=== PATIENT | female | born 1960 | race Caucasian/White ===

== ENCOUNTER 2017-02-03 05:40 | Emergency (ER) | payer BC ==
[~2017-02-03] VITALS: Ht 157.5 cm; Wt 63.6 kg
[2017-02-03] MEDS ORDERED: SODIUM CHLORIDE 0.9% 1,000 ML IV ONE (06:18)
[2017-02-03] MEDS ORDERED: LORazepam 2 MG/ML, 1ML IVPush ONE (06:30)
[2017-02-03] MEDS ORDERED: SODIUM CHLORIDE FLUSH 10ML SYR IVF ONE (06:30)
[2017-02-03] MEDS ORDERED: KETOROLAC 30 MG/1 ML IVPush ONE (06:30)
[2017-02-03] MEDS ORDERED: SODIUM CHLORIDE 0.9% 1,000ML IVBOLUS ONE (06:30)
[2017-02-03] MEDS ORDERED: KETOROLAC 30 MG/1 ML ONE (06:33)
[2017-02-03] MEDS ORDERED: LORazepam 2 MG/ML, 1ML ONE (06:34)
[2017-02-03 07:14] LABS: ASPARTATE AMINO TRANSFERASE 21 U/L (15-37); BLOOD UREA NITROGEN 14 mg/dL (7-18)
[2017-02-03] MEDS ORDERED: POTASSIUM CHLORIDE 20 MEQ TAB.ER.PRT PO ONE (08:00)
[2017-02-03 10:05] VITALS: BP 102/56
[2017-02-03] MEDS ORDERED: POTASSIUM CHLORIDE 20 MEQ TAB.ER.PRT ONE (10:48)
== END 2017-02-03 11:07 | disposition home or self-care (01) ==
LOC: ED 11:01
DX: M79.1 Myalgia (principal); J20.9 Acute bronchitis, unspecified; B96.89 Other specified bacterial agents as the cause of diseases classified elsewhere; L03.113 Cellulitis of right upper limb; E87.6 Hypokalemia; Z85.9 Personal history of malignant neoplasm, unspecified
CPT/HCPCS: 36415; 71020; 80053; 82550; 83605; 83690; 84484; 85025; 93005; 96361; 96374; 96375; 99285; J1885; J2060; J7030

== ENCOUNTER 2017-03-09 19:00 | Emergency (ER) | payer BC ==
[~2017-03-09] VITALS: Ht 157.5 cm; Wt 68.5 kg
[2017-03-09] MEDS ORDERED: SODIUM CHLORIDE 0.9% 1,000ML IVBOLUS ONE (19:30)
[2017-03-09 19:34] LABS: BLOOD UREA NITROGEN 12 mg/dL (7-18)
[2017-03-09 20:00] LABS: ASPARTATE AMINO TRANSFERASE 26 U/L (15-37)
[2017-03-09 20:51] VITALS: BP 174/90
== END 2017-03-09 20:53 | disposition home or self-care (01) ==
LOC: ED 20:41
DX: M62.831 Muscle spasm of calf (principal); F17.210 Nicotine dependence, cigarettes, uncomplicated
CPT/HCPCS: 36415; 80053; 83735; 85025; 99284

== ENCOUNTER 2017-03-19 14:03 | Inpatient (IN) | payer BC ==
[~2017-03-19] VITALS: Ht 157.5 cm; Wt 69.0 kg
[2017-03-19] MEDS ORDERED: LORazepam 2 MG/ML, 1ML ONE ×2 (15:27→16:28)
[2017-03-19] MEDS ORDERED: SODIUM CHLORIDE 0.9% 1,000ML IVBOLUS ONE (15:30)
[2017-03-19] MEDS ORDERED: LORazepam 2 MG/ML, 1ML IVPush ONE ×2 (15:30→16:30)
[2017-03-19] MEDS ORDERED: SODIUM CHLORIDE FLUSH 10ML SYR IVF ONE (15:30)
[2017-03-19 15:53] LABS: ASPARTATE AMINO TRANSFERASE 32 U/L (15-37); BLOOD UREA NITROGEN 17 mg/dL (7-18)
[2017-03-19] MEDS ORDERED: FLUT9.9S NAS (15:58)
[2017-03-19] MEDS ORDERED: MAGNESIUM SULFATE 1 GM, THIAMINE 100 MG, FOLIC ACID 1 MG, MVI ADULT 10 ML in SODIUM CHL... IV ONE (16:30)
[2017-03-19] MEDS ORDERED: GABAPENTIN 100 MG CAPSULE PO ONE (16:30)
[2017-03-19] MEDS ORDERED: POTASSIUM CHLORIDE 20 MEQ, MVI ADULT 10 ML, FOLIC ACID 1 MG, MAGNESIUM SULFATE 2 GM in ... IV SCH (16:57)
[2017-03-19] MEDS ORDERED: ACETAMINOPHEN 325 MG TABLET PO PRN (17:00)
[2017-03-19] MEDS ORDERED: ONDANSETRON 2MG/ML, 2ML IV PRN (17:00)
[2017-03-19] MEDS ORDERED: ALUMINUM/MAG/SIMETHICONE 30 ML UDC PO PRN (17:00)
[2017-03-19] MEDS ORDERED: LABETALOL 5MG/ML, 20ML IV PRN (17:00)
[2017-03-19] MEDS ORDERED: LORazepam 2 MG/ML, 1ML IV PRN ×5 (17:00)
[2017-03-19] MEDS ORDERED: DIPHENHYDRAMINE 50 MG CAPSULE PO PRN (17:00)
[2017-03-19] MEDS ORDERED: LORazepam 0.5MG TABLET PO PRN (17:00)
[2017-03-19] MEDS ORDERED: LORazepam 1MG TABLET PO PRN ×2 (17:00)
[2017-03-19] MEDS ORDERED: OMNIPAQUE 350 MG/ML, 100ML BOTTLE ONE (18:00)
[2017-03-19 18:05] VITALS: BP 162/93
[2017-03-19] MEDS ORDERED: [UNRECOGNIZED DRUG - OTHER] IV SCH (20:30)
[2017-03-19] MEDS ORDERED: THIAMINE IV SCH (20:30)
[2017-03-19] MEDS ORDERED: MVI ADULT IV SCH (20:30)
[2017-03-19] MEDS ORDERED: FOLIC ACID IV SCH (20:30)
[2017-03-19] MEDS ORDERED: MAGNESIUM SULFATE IV SCH (20:30)
[2017-03-19 20:55] VITALS: BP 173/102
[2017-03-19] MEDS ORDERED: MAGNESIUM SULFATE 1 GM, THIAMINE 100 MG, FOLIC ACID 1 MG, MVI ADULT 10 ML in SODIUM CHL... IV SCH (21:00)
[2017-03-19] MEDS ORDERED: NICOTINE 14MG/24 HR PATCH.TD24 TD SCH (22:30)
[2017-03-19] MEDS: HEPARIN 5,000 UNITS/ML, 1ML SQ SCH (22:40)
[2017-03-20 01:00] VITALS: BP 151/90
[2017-03-20] MEDS: HEPARIN 5,000 UNITS/ML, 1ML SQ SCH (05:46)
[2017-03-20 07:57] LABS: BLOOD UREA NITROGEN 17 mg/dL (7-18)
[2017-03-20 08:00] LABS: ASPARTATE AMINO TRANSFERASE 26 U/L (15-37)
[2017-03-20 08:03] VITALS: BP 156/95
[2017-03-20] MEDS ORDERED: NICO1PAT4 TD (08:10)
[2017-03-20] MEDS ORDERED: CYAN1TAB2 PO (08:10)
[2017-03-20] MEDS ORDERED: MULT-484 PO (08:10)
[2017-03-20] MEDS ORDERED: MULTIVITAMINS/MINERALS TABLET PO SCH (09:00)
[2017-03-20 14:19] VITALS: BP 151/66
== END 2017-03-20 13:30 | disposition home or self-care (01) | DRG 897 ==
LOC: ED 16:19 → EDIP 16:20 → ED 17:17 → 3NE 17:57
PROVIDERS: ADMIT Internal Medicine; ATTEND Internal Medicine
DX: F10.239 Alcohol dependence with withdrawal, unspecified (principal); F17.210 Nicotine dependence, cigarettes, uncomplicated; E87.6 Hypokalemia; G89.29 Other chronic pain; F41.9 Anxiety disorder, unspecified; Z98.51 Tubal ligation status
CPT/HCPCS: 36415; 74177; 80053; 81001; 83690; 83735; 84100; 85025; 87086; 93005; 96361; 96374; 96376; J1644; J3411; J3475; Q9967; J2060; J7030

== ENCOUNTER 2017-04-29 16:32 | Emergency (ER) | payer BC ==
[~2017-04-29] VITALS: Ht 157.5 cm; Wt 65.0 kg
[~2017-04-29 16:32] MED LIST: CYAN1TAB2 PO; FLUT9.9S NAS; MULT-484 PO; NICO1PAT13 TD
[2017-04-29 19:22] VITALS: BP 114/91
== END 2017-04-29 19:25 | disposition home or self-care (01) ==
LOC: ED 16:48
DX: F10.229 Alcohol dependence with intoxication, unspecified (principal)
CPT/HCPCS: 99283

== ENCOUNTER 2017-07-05 17:21 | Emergency (ER) | payer BC ==
[~2017-07-05] VITALS: Ht 154.9 cm; Wt 69.3 kg
[~2017-07-05 17:21] MED LIST changes: +NICO-486 TD; -NICO1PAT13 TD
[2017-07-05] MEDS ORDERED: NAPR500T PO (17:41)
[2017-07-05 18:25] LABS: HEMATOCRIT 45.5 % (34.6-47.8); HEMOGLOBIN 15.5 g/dL (11.7-16.4); WHITE BLOOD COUNT 6.5 x10^3/uL (3.4-10)
[2017-07-05 18:34] LABS: BLOOD UREA NITROGEN 13 mg/dL (7-18)
[2017-07-05 18:37] LABS: ASPARTATE AMINO TRANSFERASE 118 U/L (15-37)
[2017-07-05] MEDS ORDERED: POTASSIUM CHLORIDE 20 MEQ TAB.ER.PRT PO ONE (19:00)
[2017-07-05 19:08] VITALS: BP 111/78
[2017-07-05] MEDS ORDERED: POTASSIUM CHLORIDE 20 MEQ TAB.ER.PRT ONE (19:23)
== END 2017-07-05 19:42 | disposition home or self-care (01) ==
LOC: ED 19:34
DX: S70.01XA Contusion of right hip, initial encounter (principal); E87.6 Hypokalemia; F10.20 Alcohol dependence, uncomplicated; X58.XXXA Exposure to other specified factors, initial encounter; Y93.89 Activity, other specified; Y92.89 Other specified places as the place of occurrence of the external cause; Y99.8 Other external cause status
CPT/HCPCS: 36415; 80053; 80307; 85025; 85610; 85730; 99285; G0479

== ENCOUNTER 2018-01-11 17:11 | Emergency (ER) | payer BC ==
[~2018-01-11] VITALS: Ht 154.9 cm; Wt 68.0 kg
[~2018-01-11 17:11] MED LIST changes: +NAPR-856 PO
[2018-01-11 17:57] VITALS: BP 157/85
[2018-01-11] MEDS ORDERED: FOLIC ACID (17:57)
[2018-01-11 18:10] LABS: BASOPHILS # (AUTO) 0.09 x10^3/uL (0-0.1); BASOPHILS % (AUTO) 1 % (0-1); EOSINOPHILS # (AUTO) 0.31 x10^3/uL (0-0.4); EOSINOPHILS % (AUTO) 3 % (1-7); LYMPHOCYTES % (AUTO) 30 % (22-44); MD NO; MEAN CORPUSCULAR HEMOGLOBIN 35.9 pg (27.0-34.8); MEAN CORPUSCULAR HGB CONC 34.1 g/dL (32.4-35.8); MEAN CORPUSCULAR VOLUME 105.5 fL (80-100); MEAN PLATELET VOLUME 8.7 fL (7.4-10.4); MONOCYTES # (AUTO) 0.53 x10^3/uL (0.2-0.8); MONOCYTES % (AUTO) 6 % (2-9); NEUTROPHILS # (AUTO) 5.28 x10^3/uL (1.8-6.8); NEUTROPHILS % (AUTO) 59 % (42-75); PLATELET COUNT 275 x10^3/uL (130-400); RED BLOOD COUNT 4.15 x10^6/uL (3.82-5.3); RED CELL DISTRIBUTION WIDTH 13.9 % (9.6-15.2)
[2018-01-11 18:22] LABS: ALANINE AMINOTRANSFERASE 27 U/L (12-78); ALBUMIN 3.8 g/dL (3.4-5.0); ANION GAP 9 mmol/L (5-15); CALCIUM 8.8 mg/dL (8.5-10.1); CHLORIDE 116 mmol/L (98-107); CREATININE 0.72 mg/dL (0.55-1.02)
[2018-01-11 18:26] LABS: ALKALINE PHOSPHATASE 64 U/L (45-117); BILIRUBIN,TOTAL 0.3 mg/dL (0.2-1.0)
== END 2018-01-11 18:37 | disposition home or self-care (01) ==
LOC: ED 18:10
DX: R60.0 Localized edema (principal); F10.220 Alcohol dependence with intoxication, uncomplicated; E11.9 Type 2 diabetes mellitus without complications; Z79.84 Long term (current) use of oral hypoglycemic drugs; Z90.49 Acquired absence of other specified parts of digestive tract; Z79.899 Other long term (current) drug therapy
CPT/HCPCS: 36415; 71046; 80053; 80307; 83880; 85025; 93005; 93970; 99285

== ENCOUNTER 2018-03-11 15:11 | Emergency (ER) | payer BC ==
[~2018-03-11] VITALS: Ht 152.4 cm; Wt 64.1 kg
[~2018-03-11 15:11] MED LIST changes: +FOLIC ACID
[2018-03-11] MEDS ORDERED: SODIUM CHLORIDE FLUSH 10ML SYR IVF ONE (15:30)
[2018-03-11] MEDS ORDERED: ONDANSETRON 2MG/ML, 2ML IVPush ONE (15:30)
[2018-03-11] MEDS ORDERED: ONDANSETRON 2MG/ML, 2ML ONE (15:38)
[2018-03-11] MEDS ORDERED: SODIUM CHLORIDE 0.9% 1,000 ML IV ONE (15:44)
[2018-03-11] MEDS ORDERED: LORazepam 2 MG/ML, 1ML ONE (15:45)
[2018-03-11 15:59] LABS: BASOPHILS # (AUTO) 0.01 x10^3/uL (0-0.1); BASOPHILS % (AUTO) 0 % (0-1); EOSINOPHILS # (AUTO) 0.03 x10^3/uL (0-0.4); EOSINOPHILS % (AUTO) 0 % (1-7); LYMPHOCYTES # (AUTO) 1.12 x10^3/uL (1-3.4); LYMPHOCYTES % (AUTO) 12 % (22-44); MD NO; MEAN CORPUSCULAR HEMOGLOBIN 36.2 pg (27.0-34.8); MEAN CORPUSCULAR HGB CONC 34.3 g/dL (32.4-35.8); MEAN CORPUSCULAR VOLUME 105.7 fL (80-100); MEAN PLATELET VOLUME 8.9 fL (7.4-10.4); MONOCYTES # (AUTO) 0.45 x10^3/uL (0.2-0.8); MONOCYTES % (AUTO) 5 % (2-9); NEUTROPHILS # (AUTO) 8.11 x10^3/uL (1.8-6.8); NEUTROPHILS % (AUTO) 83 % (42-75); PLATELET COUNT 311 x10^3/uL (130-400); RED BLOOD COUNT 4.67 x10^6/uL (3.82-5.3)
[2018-03-11] MEDS ORDERED: THIAMINE 100 MG in SODIUM CHLORIDE 0.9% 50 ML IVPB ONE (16:00)
[2018-03-11] MEDS ORDERED: SODIUM CHLORIDE 0.9% 1,000ML IVBOLUS ONE (16:00)
[2018-03-11] MEDS ORDERED: LORazepam 2 MG/ML, 1ML IVPush ONE (16:00)
[2018-03-11] MEDS ORDERED: OMEG1CAP25 PO (16:01)
[2018-03-11] MEDS ORDERED: MAGN500T PO (16:01)
[2018-03-11] MEDS ORDERED: SIMV10TA3 PO (16:01)
[2018-03-11] MEDS ORDERED: B CO1TAB38 PO (16:01)
[2018-03-11] MEDS ORDERED: AMLO1CAP6 PO (16:01)
[2018-03-11] MEDS ORDERED: IBUP-1221 PO (16:01)
[2018-03-11] MEDS ORDERED: DIPH25CA61 PO (16:02)
[2018-03-11 16:11] LABS: ALBUMIN 4.3 g/dL (3.4-5.0); ANION GAP 11 mmol/L (5-15); CHLORIDE 103 mmol/L (98-107)
[2018-03-11 16:14] LABS: ALANINE AMINOTRANSFERASE 40 U/L (12-78); ALKALINE PHOSPHATASE 86 U/L (45-117); BILIRUBIN,TOTAL 1.3 mg/dL (0.2-1.0); CREATININE 0.85 mg/dL (0.55-1.02); TOTAL PROTEIN 8.3 g/dL (6.4-8.2)
[2018-03-11 17:59] LABS: MICROSCOPIC AUTO
[2018-03-11 18:03] LABS: CULTURE INDICATED? YES
[2018-03-11 19:57] VITALS: BP 152/87
== END 2018-03-11 20:00 | disposition home or self-care (01) ==
LOC: ED 18:08
DX: K52.89 Other specified noninfective gastroenteritis and colitis (principal); F10.239 Alcohol dependence with withdrawal, unspecified
CPT/HCPCS: 36415; 80053; 81001; 83690; 85025; 87086; 93005; 96361; 96365; 96375; 99285; J2060; J2405; J3411; J7030